=== PATIENT | female | born 1970 | race Caucasian/White ===

== ENCOUNTER 2019-02-13 08:14 | Day surgery (SDC) | payer OTHER ==
[~2019-02-13] VITALS: Ht 157.5 cm; Wt 59.1 kg
[~2019-02-13 08:14] MED LIST: LISI-325 PO
[2019-02-13 08:54] VITALS: Ht 157.5 cm; Wt 59.1 kg
[2019-02-13] MEDS ORDERED: IBUPROFEN PRN (09:08)
[2019-02-13 09:37] VITALS: BP 118/74; PULSE 75; RESP 18
[2019-02-13] MEDS ORDERED: LIDOCAINE 4% SOLUTION 50 ML BTL ONE (09:56)
[2019-02-13] MEDS ORDERED: FENTAnyl 50 MCG/ML VIAL ONE (10:32)
[2019-02-13] MEDS ORDERED: MIDAZOLAM 1 MG/ML 2 ML INJ ONE ×2 (10:32)
[2019-02-13 10:54] VITALS: BP 118/76; PULSE 72; RESP 16
== END 2019-02-13 10:57 | disposition home or self-care (01) ==
LOC: GIL 08:14
PROVIDERS: ATTEND Internal Medicine Gastroenterology
DX: R19.4 Change in bowel habit (principal); K29.50 Unspecified chronic gastritis without bleeding; I10 Essential (primary) hypertension
CPT/HCPCS: 43239; 45378; 88305; 88312; J2250; J3010; Z7610